=== PATIENT | female | born 1955 | race African-American/Black ===

== ENCOUNTER 2019-06-10 13:42 | Emergency (ER) | payer MEDICAID, MEDICARE ==
[~2019-06-10] VITALS: Ht 167.6 cm; Wt 81.6 kg
[~2019-06-10 13:42] MED LIST: XANEX PO
[2019-06-10 15:33] VITALS: BP 112/88
== END 2019-06-10 17:24 | disposition home or self-care (01) ==
LOC: ER 13:46
DX: F32.9 Major depressive disorder, single episode, unspecified (principal); Z76.0 Encounter for issue of repeat prescription; I10 Essential (primary) hypertension
CPT/HCPCS: 93005

== ENCOUNTER 2020-01-23 15:51 | Inpatient (IN) | payer MEDICARE, OTHER ==
[~2020-01-23] VITALS: Ht 167.6 cm; Wt 88.7 kg
[2020-01-23] MEDS ORDERED: SODIUM CHLORIDE 0.9% 1,000 ML IV ONE (16:16)
[2020-01-23] MEDS ORDERED: AMIODARONE 450mg/250ml AE 250 ML IV SCH (16:26)
[2020-01-23] MEDS ORDERED: LORazepam 2MG/ML-1ML VIAL IV ONE (16:30)
[2020-01-23] MEDS ORDERED: AMIODARONE HCL 150 MG in D5W 5% 100 ML IV ONE (16:30)
[2020-01-23] MEDS ORDERED: ASPirin 81 mg TAB PO ONE (16:30)
[2020-01-23 17:07] LABS: Basophils # (auto) 0 10 ^3/uL (0-0.2); Basophils % (auto) 0.7 % (0.0-2.0); Eosinophils # (auto) 0.1 10 ^3/uL (0-0.8); Eosinophils % (auto) 0.8 % (0.0-7.0); Hematocrit 40.7 % (36.0-46.0); Hemoglobin 13.6 g/dL (12.2-16.2); Lymphocytes # (auto) 1.7 10 ^3/uL (0.4-5.4); Lymphocytes % (auto) 25.5 % (10.0-50.0); Mean Corpuscular Hemoglobin 29.9 pg (28.0-32.0); Mean Corpuscular Hgb Conc. 33.5 g/dL (32.0-36.0); Mean Corpuscular Volume 89.2 fL (80.0-100.0); Monocytes # (auto) 0.3 10 ^3/uL (0-1.3); Monocytes % (auto) 5.3 % (0.0-12.0); Neutrophils # (auto) 4.5 10 ^3/uL (1.6-8.6); Neutrophils % (auto) 67.7 % (37.0-80.0); Nucleated Red Blood Cells % 0.1 %; Platelet Count (auto) 175 10^3/uL (140-450); Red Blood Cells 4.56 10^6/uL (4.0-5.20); Red Cell Distribution Width 14.1 % (11.8-14.3); White Blood Cell 6.6 10^3/uL (4.4-10.8)
[2020-01-23 17:19] LABS: Albumin 3.5 g/dL (3.4-5.0); Anion Gap 9 (5-15); Blood Urea Nitrogen 10 mg/dL (7-18); Calcium 8.8 mg/dL (8.5-10.1); Carbon Dioxide 22 mmol/L (21-32); Chloride 109 mmol/L (98-107); Glucose 108 mg/dL (74-106); Potassium 3.2 mmol/L (3.5-5.1); Sodium 140 mmol/L (136-145)
[2020-01-23 17:21] LABS: Alanine Aminotransferase 26 U/L (13-56); Aspartate Aminotransferase 20 U/L (15-37); BUN/Creatinine Ratio 14.3; GFR African American 109 mL/min; GFR Non-African American 90 mL/min
[2020-01-23 17:23] LABS: Alkaline Phosphatase 86 U/L (45-117); Bilirubin, Total 0.5 mg/dL (0.2-1.0); Total Protein 7.3 g/dL (6.4-8.2)
[2020-01-23 17:36] LABS: INR 1.13 (0.9-1.15); Partial Thromboplastin Time 28.8 sec (23.64-32.05)
[2020-01-23 18:08] LABS: Urine Bacteria FEW /hpf (None Seen); Urine Blood Negative /uL (Negative); Urine Specific Gravity 1.005 (1.001-1.035); Urine WBC <1 /hpf (0 - 5)
[2020-01-23] MEDS ORDERED: NITROGLYCERIN 0.4 MG SL TAB SL PRN (21:15)
[2020-01-23] MEDS ORDERED: ONDANSETRON HCL 4 MG/2 ML VIAL IV PRN (21:15)
[2020-01-23] MEDS ORDERED: MORPHINE SULF INJ 2 MG/ML SYRINGE 1ML IV PRN (21:15)
[2020-01-23] MEDS ORDERED: ACETAMINOPHEN 325 MG TAB PO PRN (21:15)
[2020-01-23] MEDS ORDERED: METOPROLOL TARTRATE 1MG/1ML-5ML VIAL IV PRN (21:15)
[2020-01-23] MEDS ORDERED: ENOXAPARIN SOD 80 MG/0.8ML SYRINGE SC SCH (22:00)
[2020-01-23 22:03] LABS: Urine Bacteria None Seen /hpf (None Seen)
--- NOTE | 2020-01-23 22:10 | NUR ---
Telemetry admit from ER PREETISCOT admitted to Telemetry unit after NO SBAR WAS received. Patient oriented to DONIS carrasquillo RN, unit, room, bed, and unit policies regarding patient care and visiting hours. Patient is A/O x4, skin is intact, ambulatory, on RA, no complaints of pain or SOB or distress. Patient now on continuous telemetry monitoring, tele box # 35 and telemetry reading on arrival to unit is NSR at 64 bpm. Patient weighed by bedscale and encouraged to call if they need something. All questions and concerns addressed, patient verbalized understanding.
[2020-01-23 22:16] LABS: Urine Mucus FEW (None Seen); Urine WBC 3 /hpf (0 - 5); Urine WBC Clumps F /hpf (None Seen)
[2020-01-23 22:30] VITALS: BP 177/94
[2020-01-23] MEDS: ATORVASTATIN 20 MG TAB PO SCH (23:20)
[2020-01-23] MEDS: CARVEDILOL 3.125 MG TAB PO SCH (23:20)
[2020-01-23] MEDS: cefTRIAXone 1GM/50ML D5W 50 ML IV SCH (23:20)
[2020-01-24] MEDS: cloNIDine HCL 0.1 MG TAB PO PRN ×2 (00:03→17:31)
--- NOTE | 2020-01-24 00:17 | NUR ---
Paged hospitalist regarding a critical lab value. Troponin 1.450.
--- NOTE | 2020-01-24 00:19 | NUR ---
Hospitalist called back, he was informed of the troponin level, no new orders received. Will continue to monitor.
[2020-01-24] MEDS ORDERED: ATEN100T PO (01:00)
[2020-01-24] MEDS ORDERED: ATOR10TA PO (01:00)
[2020-01-24] MEDS ORDERED: CYCL7.5T15 PO (01:00)
[2020-01-24] MEDS ORDERED: DULO20CA PO (01:00)
[2020-01-24 05:41] VITALS: BP 140/75
[2020-01-24 08:24] LABS: Basophils # (auto) 0 10 ^3/uL (0-0.2); Basophils % (auto) 0.4 % (0.0-2.0); Eosinophils # (auto) 0.1 10 ^3/uL (0-0.8); Eosinophils % (auto) 1.7 % (0.0-7.0); Hematocrit 39.2 % (36.0-46.0); Lymphocytes # (auto) 2.1 10 ^3/uL (0.4-5.4); Lymphocytes % (auto) 39.3 % (10.0-50.0); Mean Corpuscular Hemoglobin 29.4 pg (28.0-32.0); Mean Corpuscular Hgb Conc. 33.2 g/dL (32.0-36.0); Mean Corpuscular Volume 88.5 fL (80.0-100.0); Monocytes # (auto) 0.4 10 ^3/uL (0-1.3); Neutrophils # (auto) 2.7 10 ^3/uL (1.6-8.6); Neutrophils % (auto) 51.6 % (37.0-80.0); Platelet Count (auto) 160 10^3/uL (140-450); Red Blood Cells 4.42 10^6/uL (4.0-5.20); Red Cell Distribution Width 14.1 % (11.8-14.3); White Blood Cell 5.2 10^3/uL (4.4-10.8)
[2020-01-24 08:41] LABS: Calcium 8.6 mg/dL (8.5-10.1); Potassium 3.6 mmol/L (3.5-5.1)
[2020-01-24 08:57] VITALS: BP 153/102
--- NOTE | 2020-01-24 09:32 | NUR ---
DR WEINSTEIN AT BEDSIDE FOR CARDIOLOGY CONSULT. DISCUSSED PLAN OF CARE FOR CARDIAC ANGIOGRAM ON SUNDAY. PATIENT VERBALIZED UNDERSTANDING.
[2020-01-24] MEDS ORDERED: CLOPIDOGREL BISULFATE 75 MG TAB PO SCH (10:00)
[2020-01-24] MEDS: ASPirin 81 mg TAB PO SCH (11:34)
[2020-01-24] MEDS: cefTRIAXone 1GM/50ML D5W 50 ML IV SCH (11:34)
[2020-01-24] MEDS: ENOXAPARIN SOD 80 MG/0.8ML SYRINGE SC SCH ×2 (11:35→22:43)
[2020-01-24] MEDS: DOCUSATE SOD 100 MG CAP PO SCH (11:35)
[2020-01-24] MEDS: LISINOPRIL 20 MG TAB PO SCH (11:36)
[2020-01-24] MEDS: CARVEDILOL 3.125 MG TAB PO SCH ×2 (11:37→22:44)
[2020-01-24] MEDS: CELECOXIB 100 MG CAP PO SCH (11:49)
[2020-01-24 13:21] VITALS: BP 159/94
[2020-01-24] MEDS ORDERED: CELE100C82 PO (15:57)
[2020-01-24 17:05] VITALS: BP 151/100
--- NOTE | 2020-01-24 19:10 | NUR ---
RECEIVED PATIENT FROM DAY SHIFT RN. PATIENT RESTING IN BED. NO S/S OF DISTRESS NOTED. DENIED PAIN AT THIS TIME. POC INSTRUCTED AND ENCOURAGED PATIENT TO CALL FOR PRODUCE DEPARTMENT SUPERVISOR IF NEEDED. BED IN LOWEST POSITION WITH SIDE RAILS UP X 2. CALL PORTER WITHIN REACH. ALARM ON. CONTINUE TO MONITOR FOR CHANGES Q1H AND PRN.
--- NOTE | 2020-01-24 21:48 | NUR ---
MD SANDS AT BEDSIDE
[2020-01-24 22:00] VITALS: BP 139/72
[2020-01-24] MEDS: ATORVASTATIN 20 MG TAB PO SCH (22:43)
[2020-01-24] MEDS: FAMOTIDINE 20 MG TAB PO SCH (22:44)
--- NOTE | 2020-01-25 02:44 | NUR ---
PATIENT SLEEPING. NO S/S OF DISTRESS AND PAIN NOTED. CONTINUE TO MONITOR.
[2020-01-25 05:00] VITALS: BP 152/83
--- NOTE | 2020-01-25 07:00 | NUR ---
Opening Shift Note Received report on the patient. Awake lying in bed. Patient shows no signs of distress at this time. Discussed the plan of care with the patient. Bed in lowest position, side rails up x2, and the call light is within reach.
[2020-01-25 09:00] VITALS: BP 154/92
[2020-01-25] MEDS: DOCUSATE SOD 100 MG CAP PO SCH ×2 (10:00→10:32)
[2020-01-25] MEDS: FAMOTIDINE 20 MG TAB PO SCH ×2 (10:00→22:00)
[2020-01-25] MEDS: cefTRIAXone 1GM/50ML D5W 50 ML IV SCH (10:31)
[2020-01-25] MEDS: CELECOXIB 100 MG CAP PO SCH (10:32)
[2020-01-25] MEDS: ASPirin 81 mg TAB PO SCH (10:32)
[2020-01-25] MEDS: CARVEDILOL 3.125 MG TAB PO SCH ×2 (10:32→22:26)
[2020-01-25] MEDS: ENOXAPARIN SOD 80 MG/0.8ML SYRINGE SC SCH (10:33)
[2020-01-25] MEDS: LISINOPRIL 20 MG TAB PO SCH (10:33)
[2020-01-25] MEDS: SODIUM CHLORIDE 0.9% 1,000 ML IV SCH ×3 (12:30→22:27)
[2020-01-25 13:00] VITALS: BP 158/103
[2020-01-25] MEDS: cloNIDine HCL 0.1 MG TAB PO PRN ×2 (13:11→23:55)
[2020-01-25] MEDS: amLODIPine BESYLATE 5 MG TAB PO SCH (13:12)
[2020-01-25 17:00] VITALS: BP 149/76
--- NOTE | 2020-01-25 19:20 | NUR ---
RECEIVED PATIENT FROM DAY SHIFT RN. PATIENT RESTING IN BED. NO S/S OF DISTRESS NOTED. DENIED PAIN AT THIS TIME. REINFORCED NPO AFTER MIDNIGHT FOR PROCEDURE TOMORROW. PATIENT VERBALIZED UNDERSTANDING. POC INSTRUCTED AND ENCOURAGED PATIENT TO CALL FOR OTHER SPORTS OFFICIAL IF NEEDED. BED IN LOWEST POSITION WITH SIDE RAILS UP X 2. CALL PORTER WITHIN REACH. ALARM ON. CONTINUE TO MONITOR FOR CHANGES Q1H AND PRN.
--- NOTE | 2020-01-25 21:46 | NUR ---
MD SANDS AT BEDSIDE
[2020-01-25] MEDS ORDERED: SODIUM CHLORIDE 0.9% 1,000 ML IV SCH (22:00)
[2020-01-25] MEDS: ATORVASTATIN 20 MG TAB PO SCH (22:26)
[2020-01-25 22:30] VITALS: BP 154/106
--- NOTE | 2020-01-26 00:15 | NUR ---
REINFORCED NPO FROM NOW ON. WATER AND FOOD REMOVED FROM BEDSIDE. PATIENT VERBALIZED UNDERSTANDING. CONTINUE TO MONITOR,
--- NOTE | 2020-01-26 02:34 | NUR ---
PATIENT SLEEPING. NO S/S OF DISTRESS AND PAIN NOTED. CONTINUE TO MONITOR.
--- NOTE | 2020-01-26 04:37 | NUR ---
PATIENT SLEEPING. NO S/S OF DISTRESS AND PAIN NOTED. CONTINUE TO MONITOR.
[2020-01-26 05:16] VITALS: BP 147/89
[2020-01-26 07:12] LABS: Basophils # (auto) 0 10 ^3/uL (0-0.2); Basophils % (auto) 0.6 % (0.0-2.0); Eosinophils # (auto) 0.1 10 ^3/uL (0-0.8); Eosinophils % (auto) 1.9 % (0.0-7.0); Hematocrit 38.3 % (36.0-46.0); Hemoglobin 12.8 g/dL (12.2-16.2); Lymphocytes # (auto) 1.6 10 ^3/uL (0.4-5.4); Lymphocytes % (auto) 31.5 % (10.0-50.0); Mean Corpuscular Hemoglobin 29.7 pg (28.0-32.0); Mean Corpuscular Hgb Conc. 33.5 g/dL (32.0-36.0); Mean Corpuscular Volume 88.6 fL (80.0-100.0); Monocytes # (auto) 0.4 10 ^3/uL (0-1.3); Monocytes % (auto) 8.2 % (0.0-12.0); Neutrophils # (auto) 2.9 10 ^3/uL (1.6-8.6); Neutrophils % (auto) 57.8 % (37.0-80.0); Nucleated Red Blood Cells % 0.2 %; Platelet Count (auto) 158 10^3/uL (140-450); Red Blood Cells 4.32 10^6/uL (4.0-5.20); Red Cell Distribution Width 13.8 % (11.8-14.3); White Blood Cell 4.9 10^3/uL (4.4-10.8)
--- NOTE | 2020-01-26 07:20 | NUR ---
OPENING NOTE ASSUMED CARE OF PT. ALERT AND ORIENTED. NO S/S OF SOB/DISTRESS NOTED. BED SET TO LOWEST POSITION/LOCKED. BEDSIDE RAILS UP X2. CALL LIGHT WITH IN REACH. INSTRUCTED PATIENT TO CALL FOR ASSISTANCE. UPDATED PT ON POC. PT VERBALIZED UNDERSTANDING. WILL CONTINUE TO MONITOR Q1HR AND PRN.
[2020-01-26 07:32] LABS: Calcium 8.9 mg/dL (8.5-10.1); Potassium 3.5 mmol/L (3.5-5.1)
--- NOTE | 2020-01-26 07:55 | NUR ---
OFF UNIT PATIENT OFF UNIT VIA BED TO FACILITY MANAGER HISTOLOGY. NO S/S OF SOB/DISTRESS NOTED.
[2020-01-26] MEDS ORDERED: fentaNYL CITRATE 100 MCG/2 ML VL ONE (08:21)
[2020-01-26] MEDS ORDERED: ANGIOMAX 250 MG VIAL IV ONE (08:21)
[2020-01-26] MEDS ORDERED: HEPARIN SODIUM (PORCINE) 5000 UNITS/ML 1ML VIAL ONE (08:21)
[2020-01-26] MEDS ORDERED: VERAPAMIL 2.5MG/ML INJ 2ML VIAL IV ONE (08:21)
[2020-01-26] MEDS ORDERED: LIDOCAINE 2%HCL (LOCAL ANESTH.) INJ 20ML MDV ONE (08:22)
[2020-01-26] MEDS ORDERED: MIDAZOLAM HCL 1MG/1ML-2 ML VIAL ONE (08:22)
[2020-01-26] MEDS ORDERED: SODIUM CHL 0.9% 0 ML ONE (08:22)
[2020-01-26] MEDS ORDERED: IODIXANOL 320MG/ML 100ML BTL IV ONE (08:50)
[2020-01-26 09:00] VITALS: BP 138/83
[2020-01-26] MEDS: DOCUSATE SOD 100 MG CAP PO SCH (10:00)
[2020-01-26] MEDS: FAMOTIDINE 20 MG TAB PO SCH (10:00)
[2020-01-26] MEDS: ASPirin 81 mg TAB PO SCH (10:00)
[2020-01-26] MEDS: cefTRIAXone 1GM/50ML D5W 50 ML IV SCH (10:00)
--- NOTE | 2020-01-26 10:45 | NUR ---
ON UNIT PATIENT BACK ON UNIT VIA BED FROM SHIPPING AND RECEIVING SUPERVISOR. NO S/S OF SOB/DISTRESS NOTED. WILL CONTINUE TO MONITOR FOR CHANGES.
--- NOTE | 2020-01-26 11:00 | NUR ---
VASC BAND 2ML REMOVED 11:15 2ML REMOVED 11:30 2ML REMOVED 11:45 2ML REMOVED 12:00 2ML REMOVED 12:15 2ML REMOVED VASC BAND REMOVED. APPLIED DRESSING WITH 2X2 AND TEGADERM. PATIENT TOLERATED WELL. WILL CONTINUE TO MONITOR FOR CHANGES.
[2020-01-26] MEDS: CELECOXIB 100 MG CAP PO SCH (11:05)
[2020-01-26] MEDS: CARVEDILOL 3.125 MG TAB PO SCH (11:06)
[2020-01-26] MEDS: amLODIPine BESYLATE 5 MG TAB PO SCH (11:07)
[2020-01-26] MEDS: LISINOPRIL 20 MG TAB PO SCH (11:08)
[2020-01-26 13:00] VITALS: BP 130/92
[2020-01-26] MEDS ORDERED: NITROFURANTOIN 100 mg CAP PO ONE (14:30)
[2020-01-26] MEDS ORDERED: APIXABAN 5 MG TAB PO SCH (14:30)
[2020-01-26] MEDS ORDERED: APIX5TAB PO (14:43)
[2020-01-26] MEDS ORDERED: NITR100C44 PO (14:43)
[2020-01-26] MEDS ORDERED: METO25TA5 PO (14:43)
[2020-01-26] MEDS ORDERED: AML5T PO (14:43)
[2020-01-26] MEDS ORDERED: LISI-646 PO (14:43)
[2020-01-26] MEDS ORDERED: ATOR20TA50 PO (14:43)
[2020-01-26] MEDS ORDERED: IBUPROFEN 400 MG TAB PO ONE (15:30)
[2020-01-26 17:00] VITALS: BP 150/92
[2020-01-26 18:09] VITALS: BP 130/92
--- NOTE | 2020-01-26 18:45 | NUR ---
Discharge Discharge instructions given as ordered. Encourage to follow up with primary care doctor and textiles printer. All questions and concerns addressed. Patient verbalized understanding. IV removed with catheter intact, pressure dressing applied. Telemetry unit #[id number] returned to ICU.
--- NOTE | 2020-01-26 19:25 | NUR ---
Patient taken to vehicle via wheelchair with all personal belongings, accompanied by staff and family member. No distress noted at time of departure.
--- NOTE | 2020-01-26 19:27 | NUR ---
TELE MONITOR WALKED WALKED DOWN TO ICU BY THIS NURSE.
[2020-01-26] MEDS ORDERED: NITROFURANTOIN 100 mg CAP PO SCH (22:00)
== END 2020-01-26 19:25 | disposition home or self-care (01) | DRG 281 ==
LOC: EDBD 15:51 → ER 15:51 → TELE 15:52 → TELE-CENTR 22:10
PROVIDERS: ADMIT Hospitalist; ATTEND Internal Medicine
PROC: B2111ZZ Fluoroscopy of Multiple Coronary Arteries using Low Osmolar Contrast (ICD-10-PCS; principal; 2020-01-26)
DX: I21.4 Non-ST elevation (NSTEMI) myocardial infarction (principal); N39.0 Urinary tract infection, site not specified; I48.91 Unspecified atrial fibrillation; I24.9 Acute ischemic heart disease, unspecified; I10 Essential (primary) hypertension; E78.5 Hyperlipidemia, unspecified; E66.01 Morbid (severe) obesity due to excess calories; F32.9 Major depressive disorder, single episode, unspecified; F41.9 Anxiety disorder, unspecified; I70.0 Atherosclerosis of aorta; Z79.899 Other long term (current) drug therapy; Z80.41 Family history of malignant neoplasm of ovary; Z82.49 Family history of ischemic heart disease and other diseases of the circulatory system; Z83.511 Family history of glaucoma; Z68.31 Body mass index [BMI] 31.0-31.9, adult
CPT/HCPCS: 36415; 71045; 80048; 80053; 80061; 81001; 81015; 84443; 84484; 85025; 85610; 85730; 87086; 93005; 93306; 93454; 96360; 99152; 99153; 99291; G0378; J0696; J2250; J7060; Q9967

== ENCOUNTER 2020-02-16 17:01 | Emergency (ER) | payer OTHER ==
[~2020-02-16] VITALS: Ht 167.6 cm; Wt 86.2 kg
[~2020-02-16 17:01] MED LIST changes: +AML5T PO; +APIX5TAB PO; +ATOR20TA50 PO; +CELE100C82 PO; +DULO20CA PO; +LISI-646 PO; +METO25TA5 PO; +NITR-87 PO
[2020-02-16 17:06] VITALS: BP 110/72
[2020-02-16] MEDS ORDERED: ASPirin 81 mg TAB PO ONE (17:30)
== END 2020-02-16 19:21 | disposition left against medical advice (07) ==
LOC: ER 17:01
DX: R07.89 Other chest pain (principal); Z53.21 Procedure and treatment not carried out due to patient leaving prior to being seen by health care provider
CPT/HCPCS: 71046; 93005

== ENCOUNTER → 2020-02-23 | Emergency (ER) | payer OTHER ==
[~2020-02-23] VITALS: Ht 167.6 cm; Wt 83.9 kg
[~2020-02-23] MED LIST changes: -NITR-87 PO; +NITR100C44 PO
[2020-02-23 18:58] VITALS: BP 102/68
[2020-02-23 21:03] LABS: Basophils # (auto) 0 10 ^3/uL (0-0.2); Basophils % (auto) 0.4 % (0.0-2.0); Eosinophils # (auto) 0.1 10 ^3/uL (0-0.8); Eosinophils % (auto) 1.4 % (0.0-7.0); Hematocrit 41.2 % (36.0-46.0); Hemoglobin 13.8 g/dL (12.2-16.2); Lymphocytes # (auto) 2.3 10 ^3/uL (0.4-5.4); Lymphocytes % (auto) 28.8 % (10.0-50.0); Mean Corpuscular Hemoglobin 29.4 pg (28.0-32.0); Mean Corpuscular Hgb Conc. 33.4 g/dL (32.0-36.0); Monocytes # (auto) 0.5 10 ^3/uL (0-1.3); Monocytes % (auto) 6.7 % (0.0-12.0); Neutrophils % (auto) 62.7 % (37.0-80.0); Nucleated Red Blood Cells % 0.1 %; Platelet Count (auto) 234 10^3/uL (140-450); Red Blood Cells 4.69 10^6/uL (4.0-5.20); White Blood Cell 7.9 10^3/uL (4.4-10.8)
[2020-02-23 21:19] LABS: Albumin 3.8 g/dL (3.4-5.0); Anion Gap 6 (5-15); Blood Urea Nitrogen 14 mg/dL (7-18); Calcium 9.3 mg/dL (8.5-10.1); Carbon Dioxide 26 mmol/L (21-32); Chloride 107 mmol/L (98-107); Glucose 111 mg/dL (74-106); Potassium 3.3 mmol/L (3.5-5.1); Sodium 139 mmol/L (136-145)
[2020-02-23 21:26] LABS: Alanine Aminotransferase 38 U/L (13-56); Alkaline Phosphatase 109 U/L (45-117); Aspartate Aminotransferase 19 U/L (15-37); BUN/Creatinine Ratio 18.2; Bilirubin, Total 0.4 mg/dL (0.2-1.0); GFR African American 98 mL/min; GFR Non-African American 81 mL/min; Total Protein 8.1 g/dL (6.4-8.2)
== END | disposition left against medical advice (07) ==
LOC: ER 18:54
DX: R07.89 Other chest pain (principal); Z53.21 Procedure and treatment not carried out due to patient leaving prior to being seen by health care provider
CPT/HCPCS: 36415; 71046; 80053; 84484; 85025

== ENCOUNTER 2020-11-30 09:16 | Emergency (ER) | payer OTHER ==
[~2020-11-30] VITALS: Ht 167.6 cm; Wt 83.9 kg
[~2020-11-30 09:16] MED LIST changes: +NITR-87 PO; -NITR100C44 PO
[2020-11-30 09:45] VITALS: BP 121/81
== END 2020-11-30 10:37 | disposition home or self-care (01) ==
LOC: ER 09:16
DX: S61.207A Unspecified open wound of left little finger without damage to nail, initial encounter (principal); I10 Essential (primary) hypertension; E78.5 Hyperlipidemia, unspecified; Z79.899 Other long term (current) drug therapy; W26.0XXA Contact with knife, initial encounter; Y93.89 Activity, other specified; Y92.89 Other specified places as the place of occurrence of the external cause; Y99.8 Other external cause status

== ENCOUNTER 2021-07-03 20:27 | Inpatient (IN) | payer OTHER ==
[~2021-07-03] VITALS: Ht 167.6 cm; Wt 79.4 kg
[~2021-07-03 20:27] MED LIST changes: -LISI-646 PO; +LISI20TA28 PO
[2021-07-03] MEDS ORDERED: dilTIAZem 25 MG/5 ML VIAL IV ONE ×2 (21:15)
[2021-07-03] MEDS ORDERED: SODIUM CHLORIDE 0.9% 1,000 ML IV ONE (21:30)
[2021-07-03 22:39] LABS: Basophils # (auto) 0 10 ^3/uL (0-0.2); Basophils % (auto) 0.5 % (0.0-2.0); Eosinophils # (auto) 0.1 10 ^3/uL (0-0.8); Eosinophils % (auto) 1.5 % (0.0-7.0); Hematocrit 38.7 % (36.0-46.0); Hemoglobin 12.9 g/dL (12.2-16.2); Lymphocytes % (auto) 24.3 % (10.0-50.0); Mean Corpuscular Hemoglobin 29.1 pg (28.0-32.0); Mean Corpuscular Hgb Conc. 33.4 g/dL (32.0-36.0); Monocytes # (auto) 0.8 10 ^3/uL (0-1.3); Monocytes % (auto) 9.7 % (0.0-12.0); Neutrophils # (auto) 5.3 10 ^3/uL (1.6-8.6); Nucleated Red Blood Cells % 0.1 %; Red Blood Cells 4.45 10^6/uL (4.0-5.20); Red Cell Distribution Width 15.1 % (11.8-14.3); White Blood Cell 8.3 10^3/uL (4.4-10.8)
[2021-07-03 23:07] LABS: INR 1.12 (0.9-1.15)
[2021-07-03 23:10] LABS: Albumin 3.3 g/dL (3.4-5.0); Calcium 8.8 mg/dL (8.5-10.1); Magnesium 2.4 mg/dL (1.6-2.6); Potassium 3.6 mmol/L (3.5-5.1)
[2021-07-03 23:23] LABS: BUN/Creatinine Ratio 20.7; Bilirubin, Total 0.3 mg/dL (0.2-1.0); Total Protein 7.4 g/dL (6.4-8.2)
[2021-07-04] VITALS (12 sets, daily range): BP systolic 105–129; BP diastolic 54–89
[2021-07-04] MEDS ORDERED: dilTIAZem 25 MG/5 ML VIAL IV ONE
[2021-07-04] MEDS ORDERED: dilTIAZem 125mg/125ml BAG KIT 125 ML IV ONE
[2021-07-04] MEDS ORDERED: ASPirin 325 MG TAB PO ONE (03:15)
[2021-07-04] MEDS ORDERED: dilTIAZem 125mg/125ml BAG KIT 100 ML IV SCH (05:00)
[2021-07-04] MEDS ORDERED: ONDANSETRON HCL 4 MG/2 ML VIAL IV PRN (05:00)
[2021-07-04] MEDS ORDERED: ACETAMINOPHEN 325 MG TAB PO PRN (05:00)
[2021-07-04] MEDS ORDERED: MORPHINE SULFATE INJECTION 2 MG/ML SYRG IV PRN (05:00)
[2021-07-04] MEDS ORDERED: NITROGLYCERIN 0.4 MG SL TAB SL PRN (05:00)
[2021-07-04 08:31] LABS: Magnesium 2.1 mg/dL (1.6-2.6)
[2021-07-04] MEDS ORDERED: ASPirin 81 mg TAB PO SCH (10:00)
[2021-07-04] MEDS ORDERED: APIXABAN 5 MG TAB PO SCH (10:00)
[2021-07-04] MEDS ORDERED: PANTOPRAZOLE 40 MG TAB PO SCH (10:00)
[2021-07-04] MEDS ORDERED: LISI2.5T47 PO (18:51)
[2021-07-04] MEDS ORDERED: METOPROLOL TARTRATE 25 MG TAB PO SCH (22:00)
[2021-07-04] MEDS ORDERED: ATORVASTATIN 20 MG TAB PO SCH (22:00)
== END 2021-07-04 20:38 | disposition home health service (06) | DRG 281 ==
LOC: ER 20:32 → TELE 20:33
PROVIDERS: ADMIT Nurse Practitioner; ATTEND Internal Medicine
DX: I21.4 Non-ST elevation (NSTEMI) myocardial infarction (principal); J98.11 Atelectasis; N17.9 Acute kidney failure, unspecified; I48.0 Paroxysmal atrial fibrillation; I10 Essential (primary) hypertension; E78.5 Hyperlipidemia, unspecified; F32.A Depression, unspecified; I25.10 Atherosclerotic heart disease of native coronary artery without angina pectoris; Z20.822 Contact with and (suspected) exposure to COVID-19; Z79.899 Other long term (current) drug therapy; Z80.41 Family history of malignant neoplasm of ovary; Z79.01 Long term (current) use of anticoagulants; Z82.49 Family history of ischemic heart disease and other diseases of the circulatory system; Z83.511 Family history of glaucoma
CPT/HCPCS: 36415; 71045; 80053; 83735; 83880; 84484; 85025; 85379; 85610; 87426; 93306; 96361; 96365; 96366; 96376; 99291; G0378

== ENCOUNTER 2023-03-18 21:24 | Emergency (ER) | payer OTHER ==
[~2023-03-18] VITALS: Ht 167.6 cm; Wt 75.0 kg
[~2023-03-18 21:24] MED LIST changes: +LISI2.5T47 PO; -LISI20TA28 PO; +LISI20TA56 PO
[2023-03-18 22:55] LABS: Basophils # (auto) 0 10 ^3/uL (0-0.2); Basophils % (auto) 0.6 % (0.0-2.0); Eosinophils # (auto) 0.2 10 ^3/uL (0-0.8); Eosinophils % (auto) 2.5 % (0.0-7.0); Hematocrit 32.6 % (36.0-46.0); Hemoglobin 10.1 g/dL (12.2-16.2); Lymphocytes % (auto) 26.6 % (10.0-50.0); Mean Corpuscular Hemoglobin 23.6 pg (28.0-32.0); Mean Corpuscular Volume 76.3 fL (80.0-100.0); Monocytes # (auto) 0.7 10 ^3/uL (0-1.3); Neutrophils # (auto) 4.4 10 ^3/uL (1.6-8.6); Neutrophils % (auto) 60.3 % (37.0-80.0); Nucleated Red Blood Cells % 0.1 %; Red Blood Cells 4.28 10^6/uL (4.0-5.20); Red Cell Distribution Width 18.3 % (11.8-14.3); White Blood Cell 7.4 10^3/uL (4.4-10.8)
[2023-03-18] MEDS ORDERED: ACETAMINOPHEN 325 MG TAB PO ONE (23:15)
[2023-03-18] MEDS ORDERED: ASPirin 81 mg TAB PO ONE (23:15)
[2023-03-18] MEDS ORDERED: SODIUM CHLORIDE 0.9% 1,000 ML IVB ONE (23:15)
[2023-03-18 23:17] LABS: Albumin 3.3 g/dL (3.4-5.0); BUN/Creatinine Ratio 18.4 (10.0-20.0); Calcium 9.2 mg/dL (8.5-10.1); Potassium 3.8 mmol/L (3.5-5.1)
[2023-03-18 23:20] LABS: Bilirubin, Total 0.2 mg/dL (0.2-1.0); Total Protein 6.8 g/dL (6.4-8.2)
[2023-03-18 23:22] VITALS: PULSE 104; RESP 18; O2SAT 94
[2023-03-18 23:37] LABS: Magnesium 1.9 mg/dL (1.6-2.6)
[2023-03-18 23:40] LABS: INR 1.14 (0.9-1.15); Partial Thromboplastin Time 27.8 SEC (24.5-34.5); Prothrombin Time 11.9 sec (9.3-11.8)
[2023-03-18 23:41] LABS: Blood Alcohol < 3.0 mg/dL (<10)
[2023-03-19] MEDS ORDERED: HYDROcodone-ACET 10/325MG TAB PO ONE (04:30)
[2023-03-19 04:59] LABS: Urine Bacteria FEW /hpf (None Seen); Urine Blood Negative /uL (Negative); Urine Clarity Clear (Clear); Urine Color Yellow (Yellow); Urine Protein, UAD Negative (Negative); Urine Specific Gravity 1.016 (1.001-1.035); Urine Urobilinogen Normal (Negative); Urine WBC 10 /hpf (0 - 5); Urine pH 5.5 (5.0-8.0)
[2023-03-19 05:05] LABS: Alcohol, Urine < 3.0 mg/dL (0-10); Amphetamine Screen, Urine NEGATIVE (NEGATIVE); Barbiturate Scree,Urine NEGATIVE (NEGATIVE); Benzodiazephine Screen, Urine NEGATIVE (NEGATIVE); Cannabinoid Screen, Urine NEGATIVE (NEGATIVE); Cocaine Screen, Urine NEGATIVE (NEGATIVE); Phencyclidine Screen, Urine NEGATIVE (NEGATIVE)
[2023-03-19 05:14] LABS: Opiate Scree,Urine POSITIVE (NEGATIVE)
[2023-03-19 09:26] VITALS: PULSE 67; RESP 20; O2SAT 97
[2023-03-19] MEDS ORDERED: NITR-87 PO (11:35)
[2023-03-19 12:13] VITALS: BP 125/78; PULSE 74; RESP 20; TEMP 98.4; O2SAT 97
== END 2023-03-19 12:14 | disposition home or self-care (01) ==
LOC: ER 21:24 → EDBD 21:24 → ER 03-19 12:14
DX: S09.8XXA Other specified injuries of head, initial encounter (principal); N39.0 Urinary tract infection, site not specified; M54.41 Lumbago with sciatica, right side; E78.5 Hyperlipidemia, unspecified; I10 Essential (primary) hypertension; R55 Syncope and collapse; Z79.899 Other long term (current) drug therapy; W18.31XA Fall on same level due to stepping on an object, initial encounter; Y93.89 Activity, other specified; Y92.89 Other specified places as the place of occurrence of the external cause; Y99.8 Other external cause status
CPT/HCPCS: 36415; 70450; 71045; 80053; 80307; 80320; 81001; 83735; 84443; 84484; 85025; 85610; 85730; 93005; 96360; 99285; J7030